=== PATIENT | male | born 1955 | race Caucasian/White ===

== ENCOUNTER 2024-04-09 07:27 | Day surgery (SDC) | payer OTHER ==
[2024-04-04 11:28] LABS: Absolute Basophils 0.1 K/uL (0-0.5); Absolute Eosinophils 0.3 K/uL (0-0.5); Absolute Lymphocytes (CBC) 1.8 K/uL (0.7-4.9); Absolute Monocytes 0.9 K/uL (0.1-1.3); Absolute Neutrophil 4.5 K/uL (1.8-8.0); Basophils % 0.7 % (0-1.3); Eosinophils % 3.7 % (0-4.4); Hematocrit 39.4 % (39.6-49.0); Hemoglobin 13.2 g/dL (13.6-17.9); Lymphocytes % 24.1 % (15.3-44.8); MCH 33.3 pg (27.0-35.0); MCHC 33.3 g/dL (32.0-36.0); MCV 99.8 fL (80-100); MPV 7.3 fL (7.6-11.3); Monocytes % 12.3 % (3.3-12.3); Neutrophils % 59.2 % (41.7-73.7); Platelets 221 thou/uL (152-406); RBC Red Blood Cell Count 3.95 M/uL (4.33-5.43); Red Cell Distribution Width 13.9 % (12.1-15.2)
--- NOTE | 2024-04-04 11:33 | RAD REPORT ---
EXAMINATION: TWO VIEW CHEST XR CLINICAL INDICATION: pre op for day surgery TECHNIQUE: 2 views of the chest was performed. COMPARISON: No prior exam. FINDINGS: The lungs are hyperexpanded suggesting COPD. The heart is upper limit of normal in size. No displaced fractures evident. IMPRESSION: COPD is suspected without acute finding identified. The USPSTF recommends annual screening for lung cancer with low-dose computed tomography (LDCT) in ad ults aged 50 to 80 years who have a 20 pack-year smoking history and currently smoke or have quit within the past 15 years. Screening should be discontinued once a person has not smoked for 15 years or develops a health problem that substantially limits life expectancy or the ability or willingness to have curative lung surgery.
[2024-04-04 11:39] LABS: Anion Gap 4.2 mEq/L (5.0-15.0); Potassium 4.2 mEq/L (3.5-5.1)
--- NOTE | 2024-04-04 14:05 | EKG ---
Test Date: 2024-04-04 Test Time: 11:09:48 Cashier General: ZHENG MEASUREMENT RESULTS: Intervals: Rate: 64 FL: 134 QRSD: 108 QT: 432 QTc: 445 [place]: P: 6 FL: 134 QRS: 50 T: 29 INTERPRETIVE STATEMENTS: Normal sinus rhythm Normal ECG No previous ECG available for comparison Electronically Signed On 04-04-24 14:05:19 CDT by Carlos Enrique Edmonds
[2024-04-09] MEDS: Ringers Lactate 1,000 ML IV ONE (07:45)
[2024-04-09] MEDS ORDERED: propofoL 200 MG/20 ML VIAL IV ONE (07:58)
[2024-04-09] MEDS ORDERED: ONDANSETRON 4 MG/2 ML VIAL ONE (07:58)
[2024-04-09] MEDS ORDERED: LIDOCAINE 2% MPF 5 ML VIAL ONE (07:58)
[2024-04-09] MEDS ORDERED: MIDAZOLAM HCL 2 MG/2 ML INJ ONE (07:59)
[2024-04-09] MEDS ORDERED: ROCURONIUM 50 MG/5 ML VIAL IV ONE (07:59)
[2024-04-09] MEDS ORDERED: FENTANYL CITR 100 MCG/2 ML ONE (07:59)
[2024-04-09] MEDS ORDERED: KETOROLAC 30 MG/ML INJ ONE (08:35)
[2024-04-09] MEDS: CEFAZOLIN SODIUM 1 GM/VIAL ONE (08:53)
[2024-04-09] MEDS ORDERED: GLYCOPYRROLATE 0.2 MG/ML SYR ONE (09:32)
[2024-04-09] MEDS ORDERED: NEOSTIGMINE 1 MG/ML -10 ML VIAL ONE (09:32)
[2024-04-09 09:51] VITALS: O2SAT 100
[2024-04-09] MEDS: HYDROMORPHONE HCL 1 MG/ML INJ ONE (10:06)
--- NOTE | 2024-04-09 10:21 | P.BOP ---
Preoperative diagnosis: Tender Right inguinal hernia Postoperative diagnosis: same Primary procedure: Laparoscopic repair of Right inguinal hernia with mesh Estimated blood loss: <10cc Specimen: none Findings: as above Anesthesia: General Complications: None Implants: 3d mesh Transferred to: Recovery Room Condition: Good
[2024-04-09] MEDS ORDERED: HYDROCODONE/APAP 5/325 MG TAB ONE (10:44)
[2024-04-09] MEDS ORDERED: TAMSULOSIN 0.4 MG SR CAP ONE (10:44)
[2024-04-09] MEDS: TAMSULOSIN 0.4 MG SR CAP PO ONE (10:48)
[2024-04-09] MEDS: HYDROCODONE/APAP 5/325 MG TAB PO ONE (10:49)
[2024-04-09 12:38] VITALS: BP 125/65; TEMP 96.7
== END 2024-04-09 11:30 | disposition home or self-care (01) ==
LOC: OR 07:27
PROVIDERS: ATTEND Surgery
PROC: 0YU54JZ Supplement Right Inguinal Region with Synthetic Substitute, Percutaneous Endoscopic Approach (ICD-10-PCS; principal; 2024-04-09 09:15)
DX: K40.30 Unilateral inguinal hernia, with obstruction, without gangrene, not specified as recurrent (principal); K40.90 Unilateral inguinal hernia, without obstruction or gangrene, not specified as recurrent; I10 Essential (primary) hypertension
CPT/HCPCS: 93005; 85025; 80048; 36415; 71046; 49650; J2704; J2710; J2001; J2250; J3010; J1170; J2405; J7120; J0690